=== PATIENT | male | born 1990 | race Hispanic/Latino ===

== ENCOUNTER 2021-09-15 00:44 | Emergency (ER) | payer OTHER ==
[~2021-09-15] VITALS: Ht 167.6 cm; Wt 246.3 kg
[2021-09-15] MEDS ORDERED: DOXYCYCLINE HY100 MG PO (01:14)
== END 2021-09-15 01:21 | disposition home or self-care (01) ==
LOC: ER 01:05
DX: S81.802A Unspecified open wound, left lower leg, initial encounter (principal); R60.0 Localized edema; I10 Essential (primary) hypertension; X58.XXXA Exposure to other specified factors, initial encounter
CPT/HCPCS: 99282

== ENCOUNTER 2021-11-23 17:19 | Emergency (ER) | payer OTHER ==
[~2021-11-23] VITALS: Ht 167.6 cm; Wt 246.3 kg
[~2021-11-23 17:19] MED LIST: DOXYCYCLINE HY100 MG PO
[2021-11-23] MEDS ORDERED: CLINDAMYCIN HCL 150 MG CAP PO ONE (18:45)
[2021-11-23] MEDS ORDERED: IBUPROFEN 400 MG TAB PO ONE (18:45)
[2021-11-23 18:57] LABS: HEMATOCRIT 42.2 % (38.2-49.6); HEMOGLOBIN 12.9 g/dL (14.0-18.0); MEAN CORPUSCULAR HEMOGLOBIN 26.5 pg (28-32); MEAN CORPUSCULAR HGB CONC 30.6 g/dL (31-35); MEAN CORPUSCULAR VOLUME 86.7 fL (81-99); PLATELET COUNT 275 x10e3/uL (140-360); RED BLOOD COUNT 4.87 x10e6/uL (4.3-5.7); RED CELL DISTRIBUTION WIDTH 15.9 % (11.7-14.4)
[2021-11-23 19:12] LABS: ALBUMIN 2.9 g/dL (3.5-5.0); ALBUMIN/GLOBULIN RATIO 0.5 (0.8-2.0); ANION GAP 11.2 mmol/L (8-16); CALCIUM 8.4 mg/dL (8.4-10.2); CREATININE, SERUM 0.92 mg/dL (0.72-1.25); POTASSIUM 4.2 mmol/L (3.5-5.1)
[2021-11-23 19:25] LABS: EOSINOPHILS % (MANUAL) 1 % (0-7); LYMPHOCYTES % (MANUAL) 11 % (19-48); MONOCYTES % (MANUAL) 6 % (3.4-9.0); NEUTROPHILS % (MANUAL) 82 % (40-74); PLATELET ESTIMATE ADEQUATE; PLATELET MORPHOLOGY COMMENT NORMAL; RBC MORPHOLOGY COMMENT NORMAL
[2021-11-23] MEDS ORDERED: CLEOCIN HCL300 MG PO ×2 (19:47)
== END 2021-11-23 19:56 | disposition home or self-care (01) ==
LOC: ER 17:34
DX: T81.30XA Disruption of wound, unspecified, initial encounter (principal); L83 Acanthosis nigricans; R60.9 Edema, unspecified; I10 Essential (primary) hypertension; E66.01 Morbid (severe) obesity due to excess calories
CPT/HCPCS: 36415; 80053; 85007; 85027; 93971; 99284